=== PATIENT | female | born 1970 | race Caucasian/White ===

== ENCOUNTER 2020-09-12 17:19 | Emergency (ER) | payer OTHER | END 2020-09-12 18:32 | disposition home or self-care (01) | LOC: JVIRT 17:19 | DX: Z20.822 Contact with and (suspected) exposure to COVID-19 (principal) | CPT/HCPCS: C9803; G2012-GT; U0003 ==

== ENCOUNTER 2020-09-19 10:33 | Emergency (ER) | payer OTHER | END 2020-09-19 13:15 | disposition home or self-care (01) | LOC: JVIRT 10:33 | DX: Z20.822 Contact with and (suspected) exposure to COVID-19 (principal) | CPT/HCPCS: C9803; G2251-GT; U0003 ==